=== PATIENT | female | born 1980 | race Two or more races ===

== ENCOUNTER 2022-07-16 22:23 | Emergency (ER) | payer MEDICAID ==
[~2022-07-16] VITALS: Ht 160 cm; Wt 62.6 kg
--- NOTE | 2022-07-16 23:21 | NUR ---
BIBHUSBAND C/O BACK PAIN X3 WEEKS, ABD PAIN X1 WEEK. -N/V/D DENIES ANY ISSUES WITH URINE OR BOWEL MOVEMENTS. EDNORSES 10/10 GENERALIZED ABD PAIN DESCRIBED "BURNING". PT AWAKE AND ALERT X4 BREATHING UNLABORED. CHANGED INTO GOWN AND PLACED ON MONITOR AND V/S WNL.
--- NOTE | 2022-07-16 23:23 | NUR ---
URINE COLLECTED AND SENT TO LAB
--- NOTE | 2022-07-16 23:23 | NUR ---
DR. BO LIM AT PT'S BEDSIDE
[2022-07-16] MEDS ORDERED: ONDANSETRON HCL/PF 4 MG/2 ML VIAL ONE (23:33)
[2022-07-16] MEDS ORDERED: MORPHINE SULFATE INJ 2 MG/ML DISP.SYRIN ONE (23:33)
[2022-07-16] MEDS: IV NS 0.9% 500 ML BAG IV ONE (23:36)
[2022-07-16] MEDS: ONDANSETRON HCL/PF 4 MG/2 ML VIAL IVP ONE (23:36)
[2022-07-16] MEDS: MORPHINE SULFATE INJ 2 MG/ML DISP.SYRIN IV ONE (23:36)
--- NOTE | 2022-07-16 23:36 | NUR ---
20G IV STARTED AT [facility]. BLOOD DRAWN AND SENT TO LAB
[2022-07-16 23:41] LABS: BASOPHILS % (AUTO) 0.5 % (0.0-2.0); EOSINOPHILS % (AUTO) 1.6 % (0.0-6.0); HEMATOCRIT 39 % (33-45); HEMOGLOBIN 13.9 g/dL (11.5-14.8); LYMPHOCYTES # (AUTO) 1.8 K/uL (0.8-4.8); LYMPHOCYTES % (AUTO) 22.9 % (20.0-44.0); MEAN CORPUSCULAR HGB CONC 36 g/dl (31.0-36.0); MEAN CORPUSCULAR VOLUME 95 fL (82-100); MONOCYTES # (AUTO) 0.6 K/uL (0.1-1.30); MONOCYTES % (AUTO) 8.1 % (2.0-12.0); NEUTROPHILS # (AUTO) 5.2 K/uL (1.8-8.9); NEUTROPHILS % (AUTO) 66.9 % (43.0-81.0); PLATELET COUNT (AUTO) 202 K/uL (150-450); RED BLOOD CELL COUNT(AUTO) 4.14 MIL/uL (4.0-5.2); WHITE BLOOD COUNT (AUTO) 7.8 K/uL (4.3-11.0)
[2022-07-16 23:53] LABS: CALCIUM, SERUM 8.9 mg/dL (8.5-10.1); CREATININE 0.9 mg/dL (0.6-1.3); POTASSIUM 4.2 mmol/L (3.5-5.1)
[2022-07-16 23:58] LABS: ALBUMIN 3.6 g/dL (3.4-5.0); BILIRUBIN,DIRECT 0.1 mg/dL (0.0-0.2); BILIRUBIN,TOTAL 0.5 mg/dL (0.2-1.0); TOTAL PROTEIN, SERUM 7.9 g/dL (6.4-8.2)
[2022-07-17] LABS: BILIRUBIN,URINE NEGATIVE (NEGATIVE); COLOR,URINE YELLOW (YELLOW); LEUKOCYTE ESTERASE ,URINE NEGATIVE (NEGATIVE); NITRITE, URINE NEGATIVE (NEGATIVE); PH,URINE 6.5 (5.0-8.0); PROTEIN,URINE NEGATIVE (NEGATIVE); UGLUCOSE 3+ mg/dL (NEGATIVE); UROBILINOGEN,URINE 0.2 EU/dL (0.2)
[2022-07-17 00:07] LABS: BACTERIA,URINE Many /HPF (None Seen); SQUAMOUS EPITHELIAL CELL,UR Few /HPF (None Seen)
[2022-07-17] MEDS ORDERED: INSULIN REGULAR, HUMAN 100 UNIT/ML 10 ML VIAL ONE (00:27)
[2022-07-17] MEDS: INSULIN REGULAR, HUMAN 100 UNIT/ML 10 ML VIAL IV ONE (00:41)
[2022-07-17 02:13] VITALS: BP 114/75
== END 2022-07-17 02:13 | disposition home or self-care (01) ==
LOC: ER 22:25
DX: K80.20 Calculus of gallbladder without cholecystitis without obstruction (principal); K80.50 Calculus of bile duct without cholangitis or cholecystitis without obstruction; E11.65 Type 2 diabetes mellitus with hyperglycemia; R10.11 Right upper quadrant pain; Z88.0 Allergy status to penicillin
CPT/HCPCS: 99284; 96374; 96361; 96375 ×2; 85025; 80048; 87077; 87086; 83690; 80076; 87186; 81001; 36415; 85730; 76705; 82962 ×3; J2405; J7040; J2270; J1815